=== PATIENT | male | born 1965 | race Caucasian/White ===

== ENCOUNTER → 2017-01-09 | Outpatient (CLI) | payer OTHER ==
[~2017-01-09] MED LIST: BENICAR HCT 12.1 TAB PO; GLYXAMBI1 TA1 PO; KOMBIGLYZE XR 11 TE1 PO; LOMOTIL 0.025 M1 TAB PO; MAG-OX 400MG T400 MG PO; METFORMIN1000 MG PO; NORCO 325 MG-51 TAB PO; PHENERGAN 25MG.25 M1 PO; PRILOSEC40 MG PO; RELAFEN 750MG750 MG OR; SUPER B COMPLE150 MG PO; WELCHOL625 MG PO; ZINC SULFATE 2220 MG PO; ZOFRAN ODT4 MG PO
== END ==
LOC: LAB 12:06
DX: R07.9 Chest pain, unspecified (principal)